=== PATIENT | female | born 1980 | race Caucasian/White ===

== ENCOUNTER 2019-03-03 15:40 | Inpatient (IN) | payer MEDICAID ==
[~2019-03-03] VITALS: Ht 149.9 cm; Wt 127.5 kg
[2019-03-03 15:35] VITALS: Ht 149.9 cm; Wt 127.5 kg
[2019-03-03 15:37] VITALS: BP 165/77; PULSE 72; RESP 20
[2019-03-03] MEDS ORDERED: PREN-93 PO (15:41)
[2019-03-03] MEDS ORDERED: ASPI-699 PO (15:41)
[2019-03-03] MEDS ORDERED: DEXTROSE 5%-LR 1,000 ML IV SCH (15:56)
--- NOTE | 2019-03-03 16:32 | TRIAGE ---
OB Triage Datetime Report Generated by CPN: 03/03/2019 16:32 Datetime: 03/03/2019 16:19 Heart Rate Comments: Report to [facility] RN Datetime: 03/03/2019 15:47 Heart Rate Comments: Dr. Scales was informed of pt's arrival to unit for BP's. New orders received. Adm pt to L _D, PIH panel, CEASAR, EFW, BPP, Cervical Lenght, Start IV, D5 LR, diet as tolerated Aprezoline 5 mg for BP 160/105. 24 urine collection for protein and creatin clearance and PC ratio (If abnormal call MD) Datetime: 03/03/2019 15:44 Assessment Type: Triage EGA: 28.1 Maternal Assessment Level of Consciousness: Keenly Alert, Responsive DTR's/Clonus: DTRs 2+; No Clonus Headache: Denies Blurred Vision: No Respiratory Effort: Unlabored; Regular Rhythm; Equal Expansion Breath Sounds, Left: Clear and Equal Breath Sounds, Right: Clear and Equal Nausea/Vomiting: Denies RUQ Epigastric Pain: Denies Lower Extremities Edema: Bilateral Lower Extremities Degree: 2+ Upper Extremities Edema: Bilateral Upper Extremities Degree: 3+ Facial Edema: None Fall Risk Assessment History of Falling: (0) No Secondary Diagnosis: (0) No Ambulatory Aid: (0) Bedrest/Nurse Assist IV Therapy: (0) No Gait: (0) Normal/Bedrest/Immobile Mental Status: (0) Oriented to Own Ability Fall Score: 0 Fall Risk Score Definition: No Risk: No action required Datetime: 03/03/2019 15:00 Time of Arrival: 02/24/2019 15:00 Arrived By: Ambulatory Arrived From: Dr. Figueredo Chief Complaint: Sent from clinic for high BP Movement: Present Contractions: Denies/Absent Rupture of Membranes: Denies Vaginal Bleeding: None Vaginal Discharge: Denies Recent Sexual Intercouse: Denies Abdominal Trauma: Not Applicable Patient Complaints: Visual Disturbance; Dependent Edema; Upper Extremity Edema Additional Patient Complaints: NST
[2019-03-03] MEDS: hydrALAzine 20 MG INJ IV PRN (18:10)
[2019-03-03] MEDS ORDERED: LABETALOL 200 MG TAB PO SCH ×2 (18:15→21:00)
[2019-03-03] MEDS ORDERED: BETAMET NA PHOS/AC(6 MG/ML) 2 ML INJ SYG IM SCH (18:30)
--- NOTE | 2019-03-03 21:13 | PREOPHP ---
DATE OF ADMISSION: 03/03/2019 HISTORY OF PRESENT ILLNESS: This is a 38-year-old lady, 4, para 2 with 1 . Her EDC is 05/18/2019, at about 29 and 1/7 weeks, admitted to labor and delivery area for -induced h ypertension. Her blood pressure in the clinic today prior to admission was 189/112 and she never had any high blood pressure before this visit on 03/03/2019. She had care in my [place] office and the care was uneventful. She was having some at times mild irregular headache. She wa s having some mild headache. PAST PERSONAL HISTORY: No history of TB, asthma. ALLERGIES: NO ALLERGIES. SOCIAL HISTORY: Patient does not smoke. She does not drink. MEDICATIONS: She does not take any drugs except her iron and vitamins. GYNECOLOGICAL HISTORY: She had menarche at the age of 14, every 28 days interval, 3 to 4 days durati on, and moderate in amount. FAMILY HISTORY: Her daughter has hypertension. OBSTETRICAL HISTORY: She is 4, para 2. Her first delivery was in 1996, second in 2012, all normal deliveries. She had an in 2003 at 5 weeks. REVIEW OF SYSTEMS: CARDIOVASCULAR: No chest pains. RESPIRATORY: No cough. GASTROINTESTINAL: No diarrhea, no vomiting. GENITOURINARY: No dysuria. PHYSICAL EXAMINATION: GENERAL: Reveals a conscious, coherent lady and in no acute distress. VITAL SIGNS: Her blood pressure on admission was 188/110, pulse rate 90 per minute, respirations 16 per minute, respirations 16 per minute. BREASTS: Within normal limits. HEART: Within normal limits. LUNGS: Within normal limit. ABDOMEN: Obese. Fundic height difficult to evaluate. PELVIC: Deferred. EXTREMITIES: +3 pedal edema. ADMITTING DIAGNOSIS: A 29 and 1/7 weeks intrauterine with severe -induced hyperte nsion. The plans were explained to the patient by the nurse as to go for the tests for PIH. The ord ers were given and Dr. Vasquez, the perinatologist, was consulted. Dictated By: REILLY BARNHART/NTS Conf#: [id number] DID#: [id number]
[2019-03-03] MEDS ORDERED: LABETALOL 200 MG TAB PO ONE (21:30)
[2019-03-03] MEDS ORDERED: MAGNESIUM SULFATE 4 GM/100 ML 100 ML IVPB ONE (21:30)
[2019-03-03] MEDS: LACTATED RINGER'S 1,000 ML IV SCH (21:51)
[2019-03-03] MEDS: MAGNESIUM SULFATE 20 GM/500 ML 500 ML IV SCH (22:31)
[2019-03-04] MEDS: LABETALOL 200 MG TAB PO SCH ×4 (02:38→21:06)
[2019-03-04] MEDS: ACETAMINOPHEN 325 MG TAB PO PRN ×2 (02:45→08:44)
[2019-03-04] MEDS ORDERED: LABETALOL HCL 20MG INJ IV ONE (06:30)
[2019-03-04] MEDS ORDERED: OXYTOCIN 30 UNITS/LR 500 ML IV SCH (06:30)
[2019-03-04] MEDS ORDERED: OXYTOCIN 30 UNITS/LR 500 ML IV PRN (06:30)
[2019-03-04] MEDS ORDERED: METHYLERGONOVINE 0.2 MG INJ IM PRN (06:30)
[2019-03-04] MEDS ORDERED: MISOPROSTOL 200 MCG TAB PR PRN (06:30)
[2019-03-04] MEDS ORDERED: CARBOPROST 250 MCG INJ IM PRN (06:30)
[2019-03-04] MEDS ORDERED: AZITHROMYCIN 500MG/NS (PMX) 250 ML IV SCH (06:30)
[2019-03-04] MEDS ORDERED: CEFAZOLIN 3 GM in SOD CHLORIDE 0.9% 100 ML IV ONE (07:00)
[2019-03-04] MEDS ORDERED: CEFAZOLIN 3 GM in DEXTROSE 5% 100 ML IV ONE (08:00)
[2019-03-04] MEDS: MAGNESIUM SULFATE 20 GM/500 ML 500 ML IV SCH (08:06)
[2019-03-04] MEDS ORDERED: BETAMET NA PHOS/AC(6 MG/ML) 2 ML INJ SYG IM SCH (09:00)
[2019-03-04] MEDS: LACTATED RINGER'S 1,000 ML IV SCH (11:08)
[2019-03-05] MEDS: LACTATED RINGER'S 1,000 ML IV SCH (01:41)
[2019-03-05] MEDS: LABETALOL 200 MG TAB PO SCH ×4 (03:09→21:24)
--- NOTE | 2019-03-05 04:51 | CONS ---
DATE OF ADMISSION: 03/03/2019 DATE OF CONSULTATION: 03/04/2019 HISTORY OF PRESENT ILLNESS: The patient is a 38-year-old, I do believe with 2 previous vaginal deliv eries, no complications. Currently, at 29 weeks and 2 days, who was admitted secondary to elevated b lood pressure. At the time of admission, her blood pressures were in the very severe range. She has received 5 mg of hydralazine per primary abrasive grinder's order. After that she was placed on 200 mg labetalol twice a day per my order that was yesterday after I received a phone call in the afternoon while I was called from clinic. I received a call in the evening from the night nurse that she had a gain elevated severe blood pressures. I addressed the issues by increasing the medication to 200 mg every 6 hours given the fact that after 4 to 5 hours, her blood pressures start to increase. She is edematous, but does not have any epigastric pain or right upper quadrant pain. She has no headache. She has never had hypertension before. PAST MEDICAL HISTORY: None. PAST SURGICAL HISTORY: None. OB HISTORY: As above. REVIEW OF SYSTEMS: All systems reviewed. They are negative except as mentioned above. PHYSICAL EXAMINATION: Blood pressure at that time today when I saw her was 145/83. Physical exam de ferred except for the bilateral upper extremity edema, 2+. heart tones reassuring. No contractions. LABORATORY RESULTS: Initial platelet was 133,000. AST and ALT were normal. Creatinine ____, I polina elias. Repeat this morning, platelets had gone up to about 147,000. Creatinine had increased to 0.7; otherwise, normal 24-hour urine for protein. IMPRESSION: Intrauterine at 29 weeks and 2 days ____ severe gestational hypertension pendi ng 24-hour urine for protein. Severe range blood pressure, received 5 mg of hydralazine at admission . After that, labetalol 200 twice a day, which was increased to 200 mg every 6 hours. This morning apparently, she started having very severe range blood pressures. She was given 20 mg of IV labetalo l. Also, it is important to mention that at night about 11 or so, the nurse called me after her bloo d pressure elevation and she was started on magnesium sulfate. She has some headache relieved by Tylenol. However, it is important to note that she has been n.p.o. since 1:00 p.m. yesterday as well as magnesium could cause some headache. Regardless, relieved rece ived by Tylenol. Platelet count at the time of admission is lower than normal, but not severely thro mbocytopenic. The increase in the platelet is possibly response to steroids. She received the stero ids every 12 hours x2. RECOMMENDATIONS: Given the patient's stability, I do recommend to discontinue magnesium. Continue w ith the labetalol 200 mg every 6 hours. Estimated weight if it has not been done. Continuous heart tone monitoring. The patient can eat. I do recommend consulting anesthesiology as patient is morbidly obese and edematous, so they are fami liar with the patient in case of necessity for emergency delivery or otherwise. We will continue to follow up the patient with you. Delivery is recommended if there is nonreassurin g heart tones, if thrombocytopenia less than 100,000 or if she has a headache not relieved by T ylenol or epigastric pain or right upper quadrant pain. Blood pressures continue to increase despite medication. Inhouse management essentially until delive ry, unless any of the above-mentioned occurred delivery at 34 weeks. If anything from above occurs, then at the time of occurrence. NICU consult. Dictated By: EDEL MARTINEZ MD ST/NTS Conf#: [id number] DID#: [id number] CC: REILLY EPPS MD;*End*
[2019-03-05] MEDS: hydrALAzine 20 MG INJ IV PRN ×2 (07:58→15:54)
--- NOTE | 2019-03-05 12:25 | PN ---
DATE: 03/04/2019 TIME: 6:30 a.m. SUBJECTIVE: The patient does not have any epigastric pain and told by the nurse and she claims that she does not have any epigastric pain and only mild headache earlier and relieved by Tylenol. No con tractions. OBJECTIVE: VITAL SIGNS: She is afebrile. Vital signs stable. Her blood pressure 180/88 and she was told to vázquez ve labetalol 20 mg IV. She is presently on labetalol 200 mg q.6h. ABDOMEN: Soft, no tenderness noted and obese. FUNDIC: Difficult to evaluate. EXTREMITIES: No calf tenderness, 2+ pedal edema. ASSESSMENT: A 29 and 2/7 weeks intrauterine with severe -induced hypertension. Mimi Vasquez was consulted and she advised to continue with labetalol and to be observed closely and to n ot do section. She advised the patient to discontinue her magnesium sulphate and to be give n a regular diet. The plans were explained to the patient and she understood everything totally. Dictated By: REILLY BARNHART/JOSE Conf#: [id number] DID#: [id number]
--- NOTE | 2019-03-05 15:21 | QN ---
Documentation Comment neonatology consult Consult at the request of Dr. Scales Mother's mother is a 38-year-old 4 para 2 mother presently at 29 and 2/7 weeks of gestation admitted for hypertension and risk of delivery. I spoke to the mother in [place]an regarding the risks associated with delivery at 29-1/7 weeks gestation occluding but not limited to the following. 1. Respiratory: This infant has a significant risk for respiratory distress syndrome requiring ventilatory support and oxygen supplementation. Steroids are helpful in maturing the lungs to decrease the length of ventilatory support requiring. There is also risk for apnea prematurity which may require longer term nasal cannula and oxygen support possibly also caffeine. This usually resolves at around 34 weeks gestation 2. Cardiac: There is a significant risk for hypotension in the extreme which may requiring volume or inotropic support. Also there is significa nt risk for a ductus arteriosus probably between 30 and 50% which may require closer either medication or surgical closure if it significantly complicates the respiratory course. 3. Infectious disease: There is an increased risk of infection and i nfants. The infant will be evaluated for infection at the time of discharge and memory not receive antibiotics then or during the hospital course. 4. Anemia: With the extent of testing using blood samples and normal breakdown of red blood cells the may become anemic and required transfusions or the use of epoetin and iron. There is also risk for thrombocytopenia which can be seen sometimes in infants born at less than 30 weeks of gestation. 5. Jaundice of the : There is an increased risk of jaundice in the infant under 30 weeks of gestation may require phototherapy or further interventions if there is a blood type incompatibility 6. Intraventricular hemorrhage/MAKER UP FOLDING: Infants were born prematurely are at risk for intraventricular hemorrhage. At this gestational age the risk for grade 3 or 4 is probably between 15 and 25%. I discussed the long-term neurodevel opmental risks associated with the grade 3 and grade 4 intraventricular hemorrhages as well as long-term follow-up and interventional care that may be necessary. 7. Nutrition: support this premature but usually require parenteral nutrition support initially and then subsequently on breastmilk feedings with fortification to gain weight adequately. usually take until 34 weeks before being able to start nipple feeding and is usually nippling adequately anywhere between 2 to 3 weeks prior to the due date. All complications of feedings include NEC which can be mediated with the use of breastmilk only feedings. 8. Usually length of stay for these babies is until the due date 2 weeks. Mortality at 29 weeks is very small probably less than 1 to 2% for those infants with severe RDS or other complications. Thank you for requesting this consult and we will be available to attend the delivery. If you have any further questions please do not hesitate to contact us to the NICU MJ VALENTIN MD Mar 05, 2019 15:20
[2019-03-06] VITALS (13 sets, daily range): BP systolic 133–173; BP diastolic 68–93; PULSE 60–75; RESP 18–23
[2019-03-06] MEDS ORDERED: hydrALAzine 20 MG INJ IV ONE (00:30)
[2019-03-06] MEDS ORDERED: hydrALAzine 20 MG INJ IV PRN ×3 (01:00→02:30)
[2019-03-06] MEDS: LABETALOL 200 MG TAB PO SCH ×6 (01:41→20:58)
[2019-03-06] MEDS ORDERED: METHYLERGONOVINE 0.2 MG INJ IM PRN ×2 (07:00→10:00)
[2019-03-06] MEDS ORDERED: MAGNESIUM SULFATE 4 GM/100 ML 100 ML IV ONE (07:00)
[2019-03-06] MEDS ORDERED: CARBOPROST 250 MCG INJ IM PRN ×2 (07:00→10:00)
[2019-03-06] MEDS ORDERED: CEFAZOLIN 3 GM in DEXTROSE 5% 100 ML IV ONE (07:00)
[2019-03-06] MEDS ORDERED: MAGNESIUM SULFATE 4 GM/100 ML 100 ML IVPB ONE (07:00)
[2019-03-06] MEDS ORDERED: MISOPROSTOL 200 MCG TAB PR PRN ×2 (07:00→10:00)
[2019-03-06] MEDS ORDERED: OXYTOCIN 30 UNITS/LR 500 ML IV PRN ×2 (07:00→10:00)
[2019-03-06] MEDS ORDERED: OXYTOCIN 30 UNITS/LR 500 ML IV SCH (07:00)
--- NOTE | 2019-03-06 07:18 | PREAC ---
Date/Time of Note Date/Time of Note DATE: 03/06/19 TIME: 07:16 Anesthesia Eval and Record Evaluation Time Pre-Procedure Interview DATE: 03/06/19 TIME: 07:16 Age 38 Sex female NPO: 8 hrs Preoperative diagnosis PIH Planned procedure c section Past Medical History Past Medical History: Includes Cardio: HTN GI: Morbid obesity Surgery & Anesthesia Issues Other issues Meds Anticoagulation: No Beta Sarai within 24 hr: No Reason Beta Sarai not given: Pt. not on B-Sarai Reported Medications Aspirin* (Brian Aspirin* Chew) 81 Mg Tab.chew, 81 MG PO DAILY, TAB.CHEW 03/03/19 Vit No.124/Iron/FA ( Vitamin Tablet) 1 Each Tablet, 1 EACH PO, TAB 03/03/19 Current Medications Acetaminophen (Tylenol Tab) 650 mg Q4H PRN PO MILD PAIN(1-3)OR ELEVATED TEMP L ast administered on 03/04/19at 08:44; Admin Dose 650 MG; Start 03/04/19 at 02:00 Diagnostic Test (Pha) (Accu-Chek) 1 ea FBSPP XX ; Start 03/06/19 at 06:00 Labetalol HCl (Normodyne) 200 mg Q4 PO Last administered on 03/06/19at 05:52; Admin Dose 200 MG; Start 03/06/19 at 01:00 Hydralazine HCl (Apresoline) 5 mg PRN PRN IV elevated blood pressure; Start 03/06/19 at 02:30 Hydralazine HCl (Apresoline) 10 mg PRN PRN IV ELEVATED BLOOD PRESSURE; Start 03/06/19 at 02:30 Cefazolin Sodium 3 gm/Dextrose 100 ml @ 100 mls/hr ONCE ONCE IV ; Start 03/06/19 at 07:00; Stop 03/06/19 at 07:59 Oxytocin/Lactated Ringer's 500 ml @ 125 mls/hr POST IV ; Start 03/06/19 at 07:00 Oxytocin/Lactated Ringer's 500 ml @ 0 mls/hr ONCE PRN IV .VAGINAL BLEEDING; Start 03/06/19 at 07:00 Methylergonovine Maleate (Methergine) 0.2 mg ONCE PRN IM .VAGINAL BLEEDING; Start 03/06/19 at 07:00 Carboprost Tromethamine (Hemabate) 250 mcg ONCE PRN IM .VAGINAL BLEEDING; Start 03/06/19 at 07:00 Misoprostol (Cytotec) 1,000 mcg ONCE PRN MD .VAGINAL BLEEDING; Start 03/06/19 at 07:00 Magnesium Sulfate 500 ml @ 50 mls/hr Q10H IV ; Start 03/06/19 at 07:30 Magnesium Sulfate 100 ml @ 200 mls/hr ONCE ONCE IV Last administered on 03/06/19at 07:02; Admin Dose 200 MLS/HR; Start 03/06/19 at 07:00; Stop 03/06/19 at 07:29 Meds reviewed: Yes Allergies Coded Allergies: No Known Allergy (Unverified , 03/03/19) Allergies Reviewed: Yes Labs/Studies Labs Reviewed: Reviewed by anesthesiologist Result Diagram: 03/06/19 0657 03/04/1931 Laboratory Tests 03/06/19 06:57 test: Positive Pre-procedure Exam Last vitals Vital Signs Date Temp Pulse Resp B/P (MAP) Pulse Ox O2 O2 Flow FiO2 Time Delivery Rate 03/03/19 98.4 72 20 165/77 Room Air 15:37 (106) Airway: Adequate mouth opening, Adequate thyromental dist Mallampati: Mallampati I Teeth: Normal Lung: Normal Heart: Normal ASA Physical Status ASA physical status: 3 Emergency: None Planned Anesthetic General/MAC: ETT Neuraxial: Spinal Nerve block: TAP (bilateral) Planned Pain Management Sub-arachniod narcotics, Single shot nerve block, Parenteral pain med Pre-operative Attestations Prior to commencing anesthesia and surgery, the patient was re-evaluated, there was verification of: *The patient's identity *The results of appropriate recent lab work and preoperative vital signs *The above evaluation not changing prior to induction *Anesthetic plan, risk benefits, alternative and complications discussed with patient/family; questions answered; patient/family understands, accepts and wishes to proceed. WEI ESCALANTE MD Mar 06, 2019 07:18
[2019-03-06] MEDS ORDERED: FENTAnyl 50 MCG/ML VIAL ONE (07:45)
[2019-03-06] MEDS ORDERED: morphine SULFATE/PF (10 MG/10 ML) INJ ONE (07:45)
[2019-03-06] MEDS ORDERED: FAMOTIDINE 20 MG INJ ONE (07:58)
[2019-03-06] MEDS ORDERED: ONDANSETRON 4 MG INJ ONE (07:58)
[2019-03-06] MEDS ORDERED: DEXAMETHASONE 4 MG/ML 1 ML INJ ONE (07:59)
--- NOTE | 2019-03-06 08:10 | PREOPHP ---
DATE OF ADMISSION: 03/03/2019 ADDENDUM: TIME: 7:30 A.M. HISTORY OF PRESENT ILLNESS: See dictated history and physical. PHYSICAL EXAMINATION: See dictated history and physical. ADMITTING DIAGNOSIS: A 29 and 1/7 weeks' intrauterine with severe -induced hypert ension. Patient had been followed by me and by Dr. Vasquez, the perinatologist. She has been on magne sium sulfate. She had betamethasone for 24 hours. She is as of 03/05/2019 in the evening, Dr. Vasquez increased her medication from 200 mg labetalol q.6 hours to 200 mg to q. 4 hours. During the night of 03/05-. Her blood pressure in spite of making it every 4 hours of the labetalol, was still between 170 to 180/80 to 90. She was given Apresoline. In the morning around 6:00 on 03/06/2019 Dr Lexie Vasquez was consulted with her progress during the night. She advised to have the patient have chip luciana section this morning with the indication of 29 and 4/7 weeks with severe -induced hypert ension. The plans were explained to the patient and to her partner and both understood everything to tally. The risks, benefits, and alternatives were discussed with them as well. Dictated By: REILLY BARNHART/JOSE Conf#: [id number] DID#: [id number]
[2019-03-06] MEDS ORDERED: NALOXONE (0.4 MG/ML) INJ IV PRN (09:00)
[2019-03-06] MEDS ORDERED: KETOROLAC 30 MG INJ IV PRN (09:00)
[2019-03-06] MEDS ORDERED: ONDANSETRON 4 MG INJ IV PRN (09:00)
[2019-03-06] MEDS ORDERED: DIPHENHYDRAMINE 50 MG INJ IV PRN (09:00)
[2019-03-06] MEDS ORDERED: ZOLPIDEM 5 MG TAB PO PRN (09:00)
[2019-03-06] MEDS ORDERED: HYDROmorphONE 0.5 MG/0.5 ML SYG IV PRN ×2 (09:00)
--- NOTE | 2019-03-06 09:21 | PAC ---
Date/Time of Note Date/Time of Note DATE: 03/06/19 TIME: 09:20 Post-Anesthesia Notes Post-Anesthesia Note Last documented vital signs Vital Signs Date Temp Pulse Resp B/P (MAP) Pulse Ox O2 O2 Flow FiO2 Time Delivery Rate 03/06/19 98 79 20 145/62 Room Air 0920 Activity: WNL Respiratory function: WNL Cardiovascular function: WNL Mental status: Baseline Pain reasonably controlled: Yes Hydration appropriate: Yes Nausea/Vomiting absent: Yes CHARLES MCKEON DO Mar 06, 2019 09:21
[2019-03-06] MEDS ORDERED: LACTATED RINGER'S 1,000 ML IV SCH (09:44)
[2019-03-06] MEDS: MAGNESIUM SULFATE 20 GM/500 ML 500 ML IV SCH ×2 (09:52→20:13)
[2019-03-06] MEDS ORDERED: LANOLIN HPA 1 PKT TOP PRN (10:00)
[2019-03-06] MEDS ORDERED: METHYLERGONOVINE 0.2 MG TAB PO PRN (10:00)
--- NOTE | 2019-03-06 10:28 | OPPN ---
Date/Time of Note Date/Time of Note DATE: 03/06/19 TIME: 10:23 Operative Report Planned Procedure Procedure date Mar 06, 2019 Procedure(s) PRIMARY CSECTION Performed by see signature line Contracts Intern: EVELINA DORSEY MD 2nd Contracts Intern none Pre-procedure diagnosis 29 4/7 IUP SEVERE PIH MORBID OBESITY [id number] Anesthesia Type: [id number] spinal Post-Procedure Post-procedure diagnosis 29 4/ IUP SEVERE PIH FIBROID PELVIC ADHESION Findings Live Baby BOY, Apgars 3 and 7, weight 3LBS 2OZ Estimated Blood Loss: 600 - 700 mls Specimen(s) none Grafts/Implant(s) PLACENTA Complication(s) none REILLY EPPS MD Mar 06, 2019 10:28
[2019-03-06] MEDS: OXYTOCIN 30 UNITS/LR 500 ML IV SCH ×2 (12:10→13:26)
[2019-03-06] MEDS: ACCU-CHEK XX SCH ×3 (12:10→20:05)
[2019-03-06] MEDS: SENNA/DOCUSATE NA (8.6MG/50MG) TAB PO SCH (21:00)
[2019-03-06] MEDS: LACTATED RINGER'S 1,000 ML IV SCH (23:49)
[2019-03-07] VITALS (11 sets, daily range): BP systolic 106–151; BP diastolic 58–84; PULSE 69–87; RESP 17–22
[2019-03-07] MEDS: LABETALOL 200 MG TAB PO SCH ×4 (01:08→20:53)
[2019-03-07] MEDS: MAGNESIUM SULFATE 20 GM/500 ML 500 ML IV SCH (06:09)
[2019-03-07] MEDS: LACTATED RINGER'S 1,000 ML IV SCH (06:50)
[2019-03-07] MEDS: ACCU-CHEK XX SCH ×2 (07:30→11:30)
--- NOTE | 2019-03-07 08:04 | OPR ---
DATE OF OPERATION: 03/06/2019 PREOPERATIVE DIAGNOSIS: A 29 and 4/7 weeks intrauterine with severe -induced hype rtension, morbid obesity. POSTOPERATIVE DIAGNOSES: 1. A 29 and 4/7 weeks intrauterine with severe -induced hypertension, morbid obes ity. 2. Fibroid uterus and severe pelvic and abdominal adhesions. SURGEON: Reilly Scales MD FULLER BRUSH WORKER: Dr. Peace ANESTHESIA: Spinal. ANESTHESIOLOGIST: Dr. Wallace. OPERATION PERFORMED: Primary vertical incision of the uterus, multiple myomectomies, lysis of severe pelvic and abdominal adhesions and vacuum delivery. OPERATIVE TECHNIQUE: Under spinal anesthesia, the patient was prepped and draped in the usual fashio n for abdominal surgery. After checking for the effect of the anesthesia, a Pfannenstiel incision, 1 4 cm skin incision, was performed. The incision was carried from the skin up to the fascia. Upon op ening the skin up to the fascia, small blood vessels were noted to be oozing and these were all caute rized. Then, the subcutaneous tissue was noted to be about 5 inches thick. The fascia was opened tr ansversely followed by splitting the muscles vertically and the peritoneum vertically. Upon opening the abdominal cavity, the bladder blade was put in place. The upper blade was put in place, the trinidad ls were packed away from the operative field as the bowel and omentum were coming out, so that wet la p sponges were placed on the left and right side of the abdomen. Then an incision was performed on t he lower mid portion of the uterus vertically, starting from the lower uterine segment going to the f undus of the uterus. The uterus was noted to be very thick and it was very difficult to make the inc ision due to the fibroids that were noted on the anterior mid portion of the uterus. Then, as soon a s the incision was done there was a loop of umbilical cord that came out from the incision. Good fun moses pressure was not effective. My hand was inserted inside the uterus and the baby's head was very difficult to be delivered as the baby girl was very high, as mentioned, all the way to the mid portio n of the uterus. Then, again, the incision was enlarged, at least 3 times and the vacuum was applied after exposing the baby's head to the incision. Then the baby was delivered and the baby's cord was clamped, handed to the NICU team right away. Cord segment was obtained for blood gases. Cord blood was obtained. The uterus was exteriorized. The uterus was cleansed with wet lap sponge to make bassem e that no membranes were left behind. The uterine incision was inspected and there were multip le fibroids noted at the uterine incision. This fibroid had to be removed to close the incision. Th ere were 4 fibroids removed and measuring about 2 x 2 cm and the other one was 3 x 3 cm and 4 of them were removed. Three of them were about 2 x 2 cm. Then, the uterus was closed in the usual fashion using #1 chromic for the first layer, continuous locking suture was used followed by #1 chromic for t he second layer, imbricating sutures were used. There was some oozing noted on the lower uterine inc ision and multiple gglmuj-oo-ozrag sutures were put in. After the [id number]-[id number] sutures were put i n and after good pressure on the uterine incision, the bleeding was controlled. The uterine incision was covered with Surgicel. Then, both tubes and ovaries were inspected. They were healthy looking. Then also the back of the uterus there were some omental adhesions noted and all these adhesions we re lysed by sharp and blunt dissection. Then, after checking for a hematoma at the back of the uteru s and there was no hematoma noted. The uterus was put back to the pelvic cavity. Once again, uterin e incision was checked for any bleeders and there was no bleeding noted. After correct sponge count, needle count, and instrument count, the abdomen was closed in the usual fashion using 0 Vicryl for t he peritoneum, 0 Vicryl for the muscles, for the fascia 0 Vicryl continuous stitch was used followed by few siofxk-ak-gvfqf sutures for the subcutaneous tissue, it was closed with 3-0 Vicryl and the sub cutaneous tissue was closed with 3-0 Vicryl, three layers were put in and the skin was closed with st aples. Patient tolerated the procedure well. Estimated blood loss about 700 mL. VITAL SIGNS: Were stable during and after the procedure. The patient delivered a baby boy, Apgars 3 and 7, weighing 3 pounds 2 ounces at 8:18 a.m. on 03/06/20 19, 1415 grams, 41 cm. Dictated By: REILLY BARNHART/JOSE Conf#: [id number] DID#: [id number]
--- NOTE | 2019-03-07 08:07 | PN ---
DATE: 03/05/2019 TIME: 8 a.m. SUBJECTIVE: The patient feels good. No epigastric pain. Occasional headache. OBJECTIVE: VITAL SIGNS: Blood pressure slightly under control and still was getting some Apresoline. Dr. Vasquez had increased her dose age of labetalol 200 mg q. 4 hours instead of q. 6 hours. ABDOMEN: Soft and no tenderness noted. EXTREMITIES: Deep tendon reflexes difficult to evaluate and still 3+ edema. ASSESSMENT: 29 and 3/7 weeks intrauterine with severe -induced hypertension per Mimi Vasquez. PLAN: Keep the patient for now and do not do a and so the plans were explained to the pio ent and to her family and to be observed closely. Dictated By: REILLY BARNHART/JOSE Conf#: [id number] DID#: [id number]
[2019-03-07] MEDS: SENNA/DOCUSATE NA (8.6MG/50MG) TAB PO SCH ×2 (09:04→20:53)
[2019-03-07] MEDS ORDERED: HYDROCODONE/APAP (5/325) TAB PO PRN (09:30)
[2019-03-07] MEDS ORDERED: IBUPROFEN 800 MG TAB PO PRN (09:30)
[2019-03-07] MEDS: HYDROCODONE/APAP (5/325) TAB PO PRN (19:36)
[2019-03-08] VITALS (7 sets, daily range): BP systolic 122–168; BP diastolic 70–87; PULSE 81–108; RESP 18–19
[2019-03-08] MEDS: HYDROCODONE/APAP (5/325) TAB PO PRN ×3 (06:18→23:55)
--- NOTE | 2019-03-08 06:19 | PN ---
Date/Time of Note Date/Time of Note DATE: 03/07/19 TIME: 3:00PM Assessment/Plan VTE Prophylaxis Risk score (from Nsg)>0 risk: 4 SCD applied (from Nsg): Yes Pharmacological prophylaxis: NA/contraindicated Pharm contraindication: low risk/ambulating Lines/Catheters IV Catheter Type (from Nrsg): Peripheral IV Assessment/Plan Assessment/Plan POSTCSECTION DAY 1 CHRONIC IRON DEFICIENCY ANEMIA ORDERED ADVANCE DIET TOLERATED CBC ON 3RD POSTOP DAY Result Diagram: 03/07/19 0739 03/07/19 0739 Results 24hrs Laboratory Tests Test 03/07/19 07:39 03/07/19 08:23 03/07/19 11:53 White Blood Count 9.5 Red Blood Count 3.57 L Hemoglobin 10.2 L Hematocrit 30.5 L Mean Corpuscular Volume 85.4 Mean Corpuscular Hemoglobin 28.6 L Mean Corpuscular Hemoglobin Concent 33.4 Red Cell Distribution Width 14.3 Platelet Count 142 Mean Platelet Volume 12.8 H Immature Granulocytes % 1.300 H Neutrophils % 74.8 Lymphocytes % 17.0 Monocytes % 6.7 Eosinophils % 0.1 Basophils % 0.1 Nucleated Red Blood Cells % 0.4 H Immature Granulocytes # 0.120 H Neutrophils # 7.1 Lymphocytes # 1.6 Monocytes # 0.6 Eosinophils # 0.0 Basophils # 0.0 Nucleated Red Blood Cells # 0.0 Sodium Level 132 L Potassium Level 4.8 Chloride Level 101 Carbon Dioxide Level 26 Anion Gap 5 Blood Urea Nitrogen 19 Creatinine 0.70 Est Glomerular Filtrat Rate mL/min > 60 Glucose Level 91 Calcium Level 6.6 L Magnesium Level 7.5 *H Bedside Glucose 125 103 Subjective 24 Hr Interval Summary Free Text/Dictation POST CSECTION DAY 1 COMPLAIN OF INCISIONAL PAINS GOOD URINE OUTPUT PASSING GAS PER RECTUM NO BOWEL MOVEMENT YET Exam/Review of Systems Exam Vitals Vital Signs Date Temp Pulse Resp B/P (MAP) Pulse Ox O2 O2 Flow FiO2 Time Delivery Rate 03/08/19 98.6 88 18 140/81 Room Air 00:19 (100) 03/07/19 93 09:30 Intake and Output 03/07/19 03/07/19 03/08/19 1515:00 23:00 07:00 IntakeIntake Total 370 ml OutputOutput Total 2100 ml BalanceBalance -1730 ml Exam VITAL SIGNS STABLE: YES AFEBRILE: YES BREAST NOT ENGORGED, NON-TENDER, NO APPRECIABLE MASS: YES LUNGS CLEAR, NO RALES, WHEEZES, RHONCHI: YES SINUS RHYTHM WITHOUT MURMUR: YES ABDOMEN: NON-TENDER FUNDUS: BELOW UMBILICUS BOWEL SOUNDS: PRESENT UTERUS: FIRM INCISION (CLEAN, DRY, AND INTACT): YES LOCHIA: LIGHT DEEP TENDON REFLEXES: 0 EXTREMITIES: NO CALF TENDERNESS EDEMA SCALE: NONE Results Results 24hrs Laboratory Tests Test 03/07/19 07:39 03/07/19 08:23 03/07/19 11:53 White Blood Count 9.5 Red Blood Count 3.57 L Hemoglobin 10.2 L Hematocrit 30.5 L Mean Corpuscular Volume 85.4 Mean Corpuscular Hemoglobin 28.6 L Mean Corpuscular Hemoglobin Concent 33.4 Red Cell Distribution Width 14.3 Platelet Count 142 Mean Platelet Volume 12.8 H Immature Granulocytes % 1.300 H Neutrophils % 74.8 Lymphocytes % 17.0 Monocytes % 6.7 Eosinophils % 0.1 Basophils % 0.1 Nucleated Red Blood Cells % 0.4 H Immature Granulocytes # 0.120 H Neutrophils # 7.1 Lymphocytes # 1.6 Monocytes # 0.6 Eosinophils # 0.0 Basophils # 0.0 Nucleated Red Blood Cells # 0.0 Sodium Level 132 L Potassium Level 4.8 Chloride Level 101 Carbon Dioxide Level 26 Anion Gap 5 Blood Urea Nitrogen 19 Creatinine 0.70 Est Glomerular Filtrat Rate mL/min > 60 Glucose Level 91 Calcium Level 6.6 L Magnesium Level 7.5 *H Bedside Glucose 125 103 Medications Medication Current Medications Acetaminophen (Tylenol Tab) 650 mg Q4H PRN PO MILD PAIN(1-3)OR ELEVATED TEMP Last administered on 03/04/19at 08:44; Admin Dose 650 MG; Start 03/04/19 at 02:00 Hydralazine HCl (Apresoline) 5 mg PRN PRN IV elevated blood pressure; Start 03/06/19 at 02:30 Hydralazine HCl (Apresoline) 10 mg PRN PRN IV ELEVATED BLOOD PRESSURE; Start 03/06/19 at 02:30 Oxytocin/Lactated Ringer's 500 ml @ 0 mls/hr ONCE PRN IV .VAGINAL BLEEDING; Start 03/06/19 at 07:00 Methylergonovine Maleate (Methergine) 0.2 mg Q6H PRN PO .VAGINAL BLEEDING; Start 03/06/19 at 10:00 Simethicone (Mylicon) 160 mg Q8H PRN PO .GAS; Start 03/06/19 at 10:00 Senna/Docusate Sodium (Senokot-S) 1 tab BID PO Last administered on 03/07/19at 20:53; Admin Dose 1 TAB; Start 03/06/19 at 21:00 Lanolin (Lanolin Hpa) 1 applic BEDSIDE MEDICATION PRN TOP .NIPPLES; Start 03/06/19 at 10:00 Diphtheria/ Tetanus/Acell Pertussis (Adacel) 0.5 ml ONCE ONCE IM* ; Start 03/09/19 at 09:00; Stop 03/09/19 at 09:01 Measles/Mumps/ Rubella Vaccine Live (Mmr Ii Vaccine) 0.5 ml ONCE ONCE SC* ; Start 03/09/19 at 09:00; Stop 03/09/19 at 09:01 Oxytocin/Lactated Ringer's 500 ml @ 0 mls/hr ONCE PRN IV .VAGINAL BLEEDING; Start 03/06/19 at 10:00 Methylergonovine Maleate (Methergine) 0.2 mg ONCE PRN IM .VAGINAL BLEEDING; Start 03/06/19 at 10:00 Carboprost Tromethamine (Hemabate) 250 mcg ONCE PRN IM .VAGINAL BLEEDING; Start 03/06/19 at 10:00 Misoprostol (Cytotec) 1,000 mcg ONCE PRN [place] .VAGINAL BLEEDING; Start 03/06/19 at 10:00 Ibuprofen (Motrin) 800 mg Q6H PRN PO MILD PAIN LEVEL 1-3 Last administered on 03/08/19at 04:27; Admin Dose 800 MG; Start 03/07/19 at 09:30 Acetaminophen/ Hydrocodone Bitart ([place] (5/325)) 1 tab Q4H PRN PO MODERATE PAIN LEVEL 4-6; Start 03/07/19 at 09:30 Acetaminophen/ Hydrocodone Bitart ([place] (5/325)) 2 tab Q4H PRN PO SEVERE PAIN LEVEL 7-10 Last administered on 03/07/19at 19:36; Admin Dose 2 TAB; Start at 09:30 Labetalol HCl (Normodyne) 200 mg BID PO Last administered on 03/07/19at 20:53; Admin Dose 200 MG; Start 03/07/19 at 21:00 REILLY EPPS MD Mar 08, 2019 06:19
[2019-03-08] MEDS: LABETALOL 200 MG TAB PO SCH ×2 (09:25→21:25)
[2019-03-08] MEDS: SENNA/DOCUSATE NA (8.6MG/50MG) TAB PO SCH ×2 (09:25→21:25)
--- NOTE | 2019-03-08 20:54 | PN ---
Date/Time of Note Date/Time of Note DATE: 03/08/19 TIME: 20:52 Assessment/Plan VTE Prophylaxis Risk score (from Nsg)>0 risk: 4 SCD applied (from Nsg): No SCD contraindicated: low risk/ambulating Pharmacological prophylaxis: NA/contraindicated Pharm contraindication: low risk/ambulating Lines/Catheters IV Catheter Type (from Nrsg): Peripheral IV Assessment/Plan Assessment/Plan POST CSECTION DAY 2 CHRONIC IRON DEFICIENCY ANEMIA HOME TOMORROW CBC TOMORROW COUNSELED INSTRUCTED PRESCRIPTION GIVEN FOR PAIN RETURN TO CLINIC IN 2 WEEKS CALL OFFICE IF THERE IS ANY PROBLEM OR CONCERN CONTINUE WITH VITAMINS OD AND FERROUS SULFATE 325MG PO TID DIET ADVISED Result Diagram: 03/07/19 0739 03/07/19 0739 Subjective 24 Hr Interval Summary Free Text/Dictation POST CSECTION DAY 2 LITTLE BOWEL MOVEMENT GOOD URINE OUTPUT FEELS LESS INCISIONAL PAINS Exam/Review of Systems Exam Vitals Vital Signs Date Temp Pulse Resp B/P (MAP) Pulse Ox O2 O2 Flow FiO2 Time Delivery Rate 03/08/19 98.8 108 18 150/86 Room Air 20:08 (107) 03/07/19 93 09:30 Intake and Output 03/07/19 03/07/19 03/08/19 1515:00 23:00 07:00 IntakeIntake Total 370 ml OutputOutput Total 2100 ml BalanceBalance -1730 ml Exam VITAL SIGNS STABLE: YES AFEBRILE: YES BREAST NOT ENGORGED, NON-TENDER, NO APPRECIABLE MASS: YES LUNGS CLEAR, NO RALES, WHEEZES, RHONCHI: YES SINUS RHYTHM WITHOUT MURMUR: YES ABDOMEN: NON-TENDER FUNDUS: BELOW UMBILICUS BOWEL SOUNDS: PRESENT UTERUS: FIRM INCISION (CLEAN, DRY, AND INTACT): YES LOCHIA: LIGHT DEEP TENDON REFLEXES: 0 EXTREMITIES: NO CALF TENDERNESS EDEMA SCALE: NONE Medications Medication Current Medications Acetaminophen (Tylenol Tab) 650 mg Q4H PRN PO MILD PAIN(1-3)OR ELEVATED TEMP Last administered on 03/04/19at 08:44; Admin Dose 650 MG; Start 03/04/19 at 02:00 Hydralazine HCl (Apresoline) 5 mg PRN PRN IV elevated blood pressure; Start 03/06/19 at 02:30 Hydralazine HCl (Apresoline) 10 mg PRN PRN IV ELEVATED BLOOD PRESSURE; Start 03/06/19 at 02:30 Oxytocin/Lactated Ringer's 500 ml @ 0 mls/hr ONCE PRN IV .VAGINAL BLEEDING; Start 03/06/19 at 07:00 Methylergonovine Maleate (Methergine) 0.2 mg Q6H PRN PO .VAGINAL BLEEDING; Start 03/06/19 at 10:00 Simethicone (Mylicon) 160 mg Q8H PRN PO .GAS; Start 03/06/19 at 10:00 Senna/Docusate Sodium (Senokot-S) 1 tab BID PO Last administered on 03/08/19at 09:25; Admin Dose 1 TAB; Start 03/06/19 at 21:00 Lanolin (Lanolin Hpa) 1 applic BEDSIDE MEDICATION PRN TOP .NIPPLES; Start 03/06/19 at 10:00 Diphtheria/ Tetanus/Acell Pertussis (Adacel) 0.5 ml ONCE ONCE IM* ; Start 03/09/19 at 09:00; Stop 03/09/19 at 09:01 Measles/Mumps/ Rubella Vaccine Live (Mmr Ii Vaccine) 0.5 ml ONCE ONCE SC* ; Start 03/09/19 at 09:00; Stop 03/09/19 at 09:01 Oxytocin/Lactated Ringer's 500 ml @ 0 mls/hr ONCE PRN IV .VAGINAL BLEEDING; Start 03/06/19 at 10:00 Methylergonovine Maleate (Methergine) 0.2 mg ONCE PRN IM .VAGINAL BLEEDING; Start 03/06/19 at 10:00 Carboprost Tromethamine (Hemabate) 250 mcg ONCE PRN IM .VAGINAL BLEEDING; Start 03/06/19 at 10:00 Misoprostol (Cytotec) 1,000 mcg ONCE PRN [place] .VAGINAL BLEEDING; Start 03/06/19 at 10:00 Ibuprofen (Motrin) 800 mg Q6H PRN PO MILD PAIN LEVEL 1-3 Last administered on 03/08/19at 04:27; Admin Dose 800 MG; Start 03/07/19 at 09:30 Acetaminophen/ Hydrocodone Bitart ([place] (5/325)) 1 tab Q4H PRN PO MODERATE PAIN LEVEL 4-6; Start 03/07/19 at 09:30 Acetaminophen/ Hydrocodone Bitart ([place] (5/325)) 2 tab Q4H PRN PO SEVERE PAIN LEVEL 7-10 Last administered on 03/08/19at 16:35; Admin Dose 2 TAB; Start 03/07/19 at 09:30 Labetalol HCl (Normodyne) 200 mg BID PO Last administered on 03/08/19at 09:25; Admin Dose 200 MG; Start 03/07/19 at 21:00 REILLY EPPS MD Mar 08, 2019 20:54
[2019-03-09] VITALS: BP 153/87; RESP 20
[2019-03-09 01:40] VITALS: BP 115/70; PULSE 97; RESP 19
[2019-03-09] MEDS: HYDROCODONE/APAP (5/325) TAB PO PRN ×3 (04:08→13:22)
[2019-03-09 04:44] VITALS: BP 157/97; PULSE 100; RESP 19
[2019-03-09 08:00] VITALS: BP 155/83; PULSE 104; RESP 18
[2019-03-09] MEDS: SENNA/DOCUSATE NA (8.6MG/50MG) TAB PO SCH (08:49)
[2019-03-09] MEDS: LABETALOL 200 MG TAB PO SCH (08:51)
[2019-03-09] MEDS ORDERED: MEASLES,MUMPS,RUBELLA VACCINE INJ SC* ONE (09:00)
[2019-03-09] MEDS ORDERED: DIPHTH/TET/ACEL PERTUSS (ADULT) 0.5 ML VIAL IM* ONE (09:00)
--- NOTE | 2019-03-10 14:38 | DELSUM ---
Delivery Summary A-C Datetime Report Generated by CPN: 03/10/2019 14:37 DELIVERY PERSONNEL Colorer: Alex, Tricia MATERNAL INFORMATION Delivery Anesthesia: Spinal Medications in Delivery: SEE ANESTHESIA Delivery QBL (ml): 500 Placenta Cultured: Yes Maternal Complications: Other Other Maternal Complications: PIH, CHRONIC HTN LABOR SUMMARY EDC: 05/18/2019 00:00 No. Babies in Womb: 1 Attempted: No Labor Anesthesia: None LABOR INFORMATION Reason for Induction: Not Applicable Group B Beta Strep: Negative Antibiotics # of Doses: 1 Antibiotics Time of Last Dose: 03/06/2019 07:55 Steroids Given: Full Course Reason Steroids Not Administered: Maternal Indication MEMBRANES Membranes Rupture Method: Artificial Rupture of Membranes: 03/06/2019 08:08 Length of Rupture (hr): 0.17 Amniotic Fluid Color: Clear Amniotic Fluid Amount: Moderate Amniotic Fluid Odor: None STAGES OF LABOR Stage 3 hr: 0 Stage 3 min: 1 VAGINAL DELIVERY Episiotomy: None Laceration Extension: N/A Laceration Type: None CSECTION DELIVERY Primary Indication: Severe PIH, Unfavor Cervix CSection Urgency: Elective CSection Incidence: Primary Labor: No Labor CSection Incision: Lower Uterine Transverse BABY A INFORMATION Infant Delivery Date/Time: 03/06/2019 08:18 Method of Delivery: Born in Route : No : N/A Forceps: N/A Vacuum Extraction: Successful Shoulder Dystocia : N/A SHOULDER DYSTOCIA BABY A Delivery Date/Time: 03/06/2019 08:18 PRESENTATION/POSITION BABY A Presentation: Cephalic Cephalic Presentation: Vertex Breech Presentation: N/A PLACENTA INFORMATION BABY A Placenta Delivery Time : 03/06/2019 08:19 Placenta Method of Delivery: Manual Removal Placenta Status: Delivered SCORES BABY A Heart Rate 1 min: >100 bpm Resp Effort 1 min: Slow, Irregular Reflex Irritability 1 min: No Response Muscle Tone 1 min: Flaccid Color 1 min: Blue/Pale Resuscitation Effort 1 min: Tactile Stimulation; Oxygen SCORE 1 MIN: 3 Heart Rate 5 min: >100 bpm Resp Effort 5 min: Slow, Irregular Reflex Irritability 5 min: Cough/Sneeze/Pulls Away Muscle Tone 5 min: Some Flexion of Extrem Color 5 min: Body [place], Extremit Blue Resuscitation Effort 5 min: Oxygen; PPV/NCPAP SCORE 5 MIN: 7 INFORMATION BABY A Gestational Age at Delivery: 29.4 Gestational Status: - <34 Weeks Infant Outcome : Liveborn, with signs of life Infant Condition : Stable Sex: Male IDENTIFICATION/MEDS BABY A ID Band Number: [id number] ID Band Location: Taped to Bed Sensor Applied: No Vitamin K Given : Not Given Erythromycin Given: Not Given WEIGHT/LENGTH BABY A Birthweight (gm): 1415 Infant Weight (lb): 3 Infant Weight (oz): 2 Length (in): 16.25 Length (cm): 41.28 CORD INFORMATION BABY A No. Cord Vessels: 3 Nuchal Cord : N/A Cord Blood Taken: Yes Infant Suction: Mouth; Nose ASSESSMENT BABY A Complications: None Physical Findings at Delivery: Within Normal Limits Infant Respirations: Grunting Graduate Studies Dean/ALS Called : Yes Transferred To: NICU
== END 2019-03-09 13:30 | disposition home or self-care (01) | DRG 787 ==
LOC: OBT 15:40 → L-D 15:41 → OBT 15:42 → L-D 17:15 → PP1 03-06 17:14
PROVIDERS: ADMIT Obstetrics & Gynecology; ATTEND Obstetrics & Gynecology
PROC: 4A1HXCZ Monitoring of Products of Conception, Cardiac Rate, External Approach (ICD-10-PCS; 2019-03-03)
PROC: 0UB90ZZ Excision of Uterus, Open Approach (ICD-10-PCS; 2019-03-06)
PROC: 10D00Z1 Extraction of Products of Conception, Low, Open Approach (ICD-10-PCS; principal; 2019-03-06 08:00)
DX: O13.4 Gestational [pregnancy-induced] hypertension without significant proteinuria, complicating childbirth (principal); Z68.43 Body mass index [BMI] 50.0-59.9, adult; O99.214 Obesity complicating childbirth; E66.01 Morbid (severe) obesity due to excess calories; O34.13 Maternal care for benign tumor of corpus uteri, third trimester; D25.9 Leiomyoma of uterus, unspecified; O99.89 Other specified diseases and conditions complicating pregnancy, childbirth and the puerperium; N73.6 Female pelvic peritoneal adhesions (postinfective); O90.81 Anemia of the puerperium; D50.9 Iron deficiency anemia, unspecified; Z37.0 Single live birth; Z3A.29 29 weeks gestation of pregnancy
CPT/HCPCS: 36415; 36600; 76815; 76817; 76818; 80048; 80053; 81001; 82575; 82803; 82947; 82962; 83735; 84156; 84560; 85025; 85610; 85730; 86592; 86850; 86900; 86901; 87070; 88307; G0463; J0360; J0690; J0702; J1100; J1200; J1885; J2274; J2405; J2590; J3010; J3475; J7120; J7121